=== PATIENT | male | born 1970 | race Caucasian/White ===

== ENCOUNTER 2018-07-04 02:10 | Emergency (ER) | payer SELFPAY ==
--- NOTE | 2018-07-04 02:17 | EDPHY ---
H & P Stated Complaint: right sided abd pain Time Seen by Provider: 07/04/18 02:17 HPI/ROS: HPI CHIEF COMPLAINT: Right flank pain. HISTORY OF PRESENT ILLNESS: 47-year-old male, presents emergency room by private vehicle with sudden-onset right flank pain. Developed right flank pain approximately an hour and half ago woke him from sleep with associated nausea vomiting. He describes sharp stabbing radiating from his right flank to his right lower abdomen. No testicular pain. Denies any trouble urinating, denies fever, denies chest pain or shortness of breath. Main complaint right flank pain. Past Medical History: History of kidney stones. Similar symptoms in the past. Past Surgical History: No recent surgery. Social History: Tobacco use daily. Occasional alcohol use. Denies illicit drugs. Family History: Noncontributory ROS REVIEW OF SYSTEMS: 10 Systems were reviewed and negative with the exception of the elements mentioned in the history of present illness. Exam Constitutional triage nursing summary reviewed, vital signs reviewed, awake/ alert. Eyes normal conjunctivae and sclera, EOMI, PERRLA. HENT normal inspection, atraumatic, moist mucus membranes, no epistaxis, neck supple/ no meningismus, no raccoon eyes. Respiratory clear to auscultation bilaterally, normal breath sounds, no respiratory distress, no wheezing. Cardiovascular rate normal, regular rhythm, no murmur, no edema, distal pulses normal. Gastrointestinal soft, non-tender, no rebound, no guarding, normal bowel sounds, no distension, no pulsatile mass. Genitourinary mild right CVA tenderness. Musculoskeletal no midline vertebral tenderness, full range of motion, no calf swelling, no tenderness of extremities, no meningismus, good pulses, neurovascularly intact. Skin pink, warm, & dry, no rash, skin atraumatic. Neurologic awake, alert and oriented x 3, AAOx3, moves all 4 extremities equally, motor intact, sensory intact, CN II-XII intact, normal cerebellar, normal vision, normal speech. Psychiatric normal mood/affect. Heme/Lymph/Immune no lymphadenopathy. Differential diagnosis includes but is not limited to and in no particular order : Bowel obstruction, appendicitis, gallbladder disease, diverticulitis, colitis , enteritis, perforated viscus, gastritis, GERD, esophagitis, urinary tract infection, pyelonephritis, kidney stones Medical Decision Making: Plan for this patient IV establishment IV fluid bolus , IV Dilaudid 0.5 mg for pain control IV Zofran 4 mg for nausea, IV fluid bolus , check basic blood work, CT scan abdomen pelvis without contrast for flank pain. Re-evaluation: CT scan abdomen pelvis without contrast for flank pain shows a right-sided ureteral stone 3 mm mid ureter. Called to me by Dr. Rudd. Patient's urinalysis reviewed does show the 1+ leukocyte Estrace white blood cells and red blood cells. I believe this to be most likely inflammation from the kidney stone. However given due to the leukocyte Estrace will send urine culture. 1 g Rocephin given Keflex prescription for home. Patient follow up with Urology Return precautions discussed return emergency room if worsening abdominal pain, fever, vomiting. The patient does not appear septic. Vital signs are stable. No fever, does not appear ill, pain well controlled after IV Dilaudid IV Toradol. IV fluids. Return precautions discussed with the patient he understands comfortable going home. Source: Patient - Medical/Surgical History Hx Asthma: No Hx Chronic Respiratory Disease: No Hx Diabetes: No Hx Cardiac Disease: No Hx Renal Disease: No Hx Cirrhosis: No Hx Alcoholism: No Hx HIV/AIDS: No Hx Splenectomy or Spleen Trauma: No - Social History Smoking Status: Current every day smoker Constitutional: Initial Vital Signs Temperature (C) 36.3 C 07/04/18 02:13 Heart Rate 67 07/04/18 02:13 Respiratory Rate 20 07/04/18 02:13 O2 Sat (%) 94 07/04/18 02:13 O2 Delivery Mode Room Air Allergies/Adverse Reactions: No Known Allergies Allergy (Unverified 07/04/18 02:12) Home Medications: Medication Instructions Recorded Cephalexin [Keflex] 500 mg PO Q6H #28 cap 07/04/18 Hydrocodone/APAP 5/325 [[place] 1 - 2 tab PO Q4H PRN #10 tab 07/04/18 5/325] Ondansetron HCl [Zofran] 4 mg PO Q4-6PRN PRN #10 tablet 07/04/18 Tamsulosin HCl [Flomax] 0.4 mg PO DAILY #10 cap 07/04/18 Medical Decision Making - Data Points Laboratory Results: Laboratory Results 07/04/18 02:30 07/04/18 02:30 07/04/18 07/04/18 07/04/18 03:34 02:30 02:30 WBC 17.29 10^3/uL H 10^3/uL (3.80-9.50) RBC 5.18 10^6/uL 10^6/uL (4.40-6.38) Hgb 15.7 g/dL g/dL (13.7-17.5) Hct 45.8 % % (40.0-51.0) MCV 88.4 fL fL (81.5-99.8) MCH 30.3 pg pg (27.9-34.1) MCHC 34.3 g/dL g/dL (32.4-36.7) RDW 13.2 % % (11.5-15.2) Plt Count 474 10^3/uL H 10^3/uL (150-400) MPV 10.2 fL fL (8.7-11.7) Neut % (Auto) 38.0 % L % (39.3-74.2) Lymph % (Auto) 51.0 % H % (15.0-45.0) [place] % (Auto) 8.0 % % (4.5-13.0) Eos % (Auto) 2.2 % % (0.6-7.6) Baso % (Auto) 0.5 % % (0.3-1.7) Nucleat RBC Rel Count 0.0 % % (0.0-0.2) Absolute Neuts (auto) 6.57 10^3/uL H 10^3/uL (1.70-6.50) Absolute Lymphs (auto) 8.82 10^3/uL H 10^3/uL (1.00-3.00) Absolute Monos (auto) 1.38 10^3/uL H 10^3/uL (0.30-0.80) Absolute Eos (auto) 0.38 10^3/uL 10^3/uL (0.03-0.40) Absolute Basos (auto) 0.09 10^3/uL 10^3/uL (0.02-0.10) Absolute Nucleated RBC 0.00 10^3/uL 10^3/uL (0-0.01) Immature Gran % 0.3 % % (0.0-1.1) Immature Gran # 0.05 10^3/uL 10^3/uL (0.00-0.10) RBC/WBC/PLT Morphology TNP Platelet Estimate TNP Sodium 144 mEq/L mEq/L (135-145) Potassium 4.3 mEq/L mEq/L (3.3-5.0) Chloride 110 mEq/L mEq/L (97-110) Carbon Dioxide 21 mEq/l L mEq/l (22-31) Anion Gap 13 mEq/L mEq/L (6-14) BUN 17 mg/dL mg/dL (7-23) Creatinine 1.0 mg/dL mg/dL (0.7-1.3) Estimated GFR > 60 Glucose 156 mg/dL H mg/dL (70-100) Calcium 9.1 mg/dL mg/dL (8.5-10.4) Total Bilirubin 0.7 mg/dL mg/dL (0.1-1.4) Conjugated Bilirubin 0.3 mg/dL mg/dL (0.0-0.5) Unconjugated Bilirubin 0.4 mg/dL mg/dL (0.0-1.1) AST 36 IU/L IU/L (17-59) ALT 37 IU/L IU/L (21-72) Alkaline Phosphatase 74 IU/L IU/L (38-126) Total Protein 7.8 g/dL g/dL (6.3-8.2) Albumin 4.3 g/dL g/dL (3.5-5.0) Lipase 102 IU/L IU/L (23-300) Urine Color YELLOW Urine Appearance HAZY Urine pH 5.0 (5.0-7.5) Ur Specific [place] 1.030 (1.002-1.030) Urine Protein 1+ H (NEGATIVE) Urine Ketones NEGATIVE (NEGATIVE) Urine Blood 3+ H (NEGATIVE) Urine Nitrate NEGATIVE (NEGATIVE) Urine Bilirubin NEGATIVE (NEGATIVE) Urine Urobilinogen 2.0 EU H EU (0.2-1.0) Ur Leukocyte Esterase NEGATIVE (NEGATIVE) Urine RBC 50-182 /hpf H /hpf (0-3) Urine WBC 3-5 /hpf H /hpf (0-3) Ur Epithelial Cells TRACE /lpf /lpf (NONE-1+) Urine Bacteria 1+ /hpf H /hpf (NONE SEEN) Urine Mucus TRACE /lpf /lpf (NONE-1+) Urine Glucose NEGATIVE (NEGATIVE) Medications Given: Ceftriaxone Sodium/Dextrose (Rocephin 1 Gm (Premix)) 50 mls @ 100 mls/hr IV EDNOW ONE PRN Reason: Protocol Stop: 07/04/18 04:41 Last Admin: 07/04/18 04:22 Dose: 50 mls Discontinued Medications Hydromorphone HCl (Dilaudid) 0.5 mg IVP EDNOW ONE Stop: 07/04/18 02:20 Last Admin: 07/04/18 02:29 Dose: 0.5 mg Hydromorphone HCl (Dilaudid) 0.5 mg IVP EDNOW ONE Stop: 07/04/18 02:41 Last Admin: 07/04/18 02:43 Dose: 0.5 mg Sodium Chloride (Ns) 1,000 mls @ 0 mls/hr IV EDNOW ONE; Wide Open PRN Reason: Protocol Stop: 07/04/18 02:20 Last Admin: 07/04/18 02:29 Dose: 1,000 mls Ketorolac Tromethamine (Toradol) 15 mg IVP EDNOW ONE Stop: 07/04/18 02:52 Last Admin: 07/04/18 02:57 Dose: 15 mg Ondansetron HCl (Zofran) 4 mg IVP EDNOW ONE Stop: 07/04/18 02:20 Last Admin: 07/04/18 02:29 Dose: 4 mg Departure - Departure Disposition: Home, Routine, Self-Care Clinical Impression: Renal colic on right side, UTI (urinary tract infection) Condition: Good Instructions: Kidney Stones (ED), Urinary Tract Infection in Men (ED), How to Strain Your Urine (ED), Flank Pain (ED) Additional Instructions: 1. Drink lots of fluids stay well-hydrated 2. Follow up with Urology Referrals: Joni You MD [Medical Doctor] - As per Instructions Prescriptions: Cephalexin [Keflex] 500 mg PO Q6H #28 cap Hydrocodone/APAP 5/325 [[place] 5/325] 1 - 2 tab PO Q4H PRN #10 tab PRN Reason: Pain, Moderate Ondansetron HCl [Zofran] 4 mg PO Q4-6PRN PRN #10 tablet PRN Reason: Nausea/Vomiting, Use 1st Tamsulosin HCl [Flomax] 0.4 mg PO DAILY #10 cap
[2018-07-04] MEDS ORDERED: NS 1,000 ML IV ONE (02:19)
[2018-07-04] MEDS ORDERED: ONDANSETRON 4 MG/2 ML VIAL IVP ONE (02:19)
[2018-07-04] MEDS ORDERED: HYDROmorphONE/DILAUDID 2 MG/ML INJ IVP ONE ×2 (02:19→02:40)
[2018-07-04 02:39] LABS: PLATELET COUNT 474 10^3/uL (150-400)
[2018-07-04] MEDS ORDERED: KETOROLAC 15 MG/1 ML SDV IVP ONE (02:51)
[2018-07-04 05:14] VITALS: BP 152/88
== END 2018-07-04 05:19 | disposition home or self-care (01) ==
DX: N23 Unspecified renal colic (principal); N39.0 Urinary tract infection, site not specified; E86.9 Volume depletion, unspecified
CPT/HCPCS: 96365; J0696; J1170; J1885; J2405